=== PATIENT | female | born 1930 | race Caucasian/White ===

== ENCOUNTER → 2016-09-19 | Outpatient (CLI) | payer MEDICARE ==
[~2016-09-19] MED LIST: ASPI1TAB69 PO; ASPI325T; CALC1TAB87 PO; CIPR500T2 PO; LORT7.5T3 PO; METR-1 PO; MIAC200S; MULTTAB67 PO; TAB-TAB; TYLE3 PO; incentive spirometer
[2016-09-19 15:16] LABS: HEMATOCRIT 43.1 % (35.0-46.0); MEAN CELL VOLUME 91.1 FL (80.0-100.0); PLATELET COUNT 322 TH/MM3 (150-450); RED BLOOD COUNT 4.73 MIL/MM3 (4.00-5.30); REVIEW FLAG FINAL; WHITE BLOOD COUNT 8.3 TH/MM3 (4.0-11.0)
--- NOTE | 2016-09-21 17:27 | EKG ---
Date Performed: 09/19/2016 Time Performed: 15:11:39 PTAGE: 85 years EKG: SINUS TACHYCARDIA NONSPECIFIC T-WAVE ABNORMALITY ABNORMAL RHYTHM ECG Compared to prior stud y of 02/04/2007, non-specific ST-T changes are now present. NO PREVIOUS TRACING DOCTOR: Mo Panchal Interpretating Date/Time 09/21/2016 17:26:32
== END ==
LOC: CPRE 14:43
PROVIDERS: ATTEND Specialist
DX: Z01.810 Encounter for preprocedural cardiovascular examination (principal); Z01.812 Encounter for preprocedural laboratory examination; R94.31 Abnormal electrocardiogram [ECG] [EKG]
CPT/HCPCS: 36415; 85027; 93005

== ENCOUNTER → 2016-09-21 | Day surgery (SDC) | payer MEDICARE ==
--- NOTE | 2016-09-20 09:03 | MH ---
cc: OWEN ARIZMENDI DATE OF ADMISSION: 09/21/2016 HISTORY OF PRESENT ILLNESS An 85-year-old female with chronic sinusitis, nasal obstruction and nasopharyngeal lesion for nasopharyngeal biopsy, removal of lesion, open septal reconstruction and sphenoid sinusotomy. REVIEW OF SYSTEMS, FAMILY HISTORY, SOCIAL HISTORY Unremarkable. PHYSICAL EXAMINATION GENERAL: A well-appearing patient in no acute distress is noted. HEENT: Exam reveals a lesion in the nasopharynx more on the left than the right. LUNGS: Clear. HEART: Regular rate and rhythm. ABDOMEN: Soft and nontender. EXTREMITIES: Without cyanosis, clubbing or edema. NEUROLOGIC: Alert and oriented. Nonfocal neurologic exam. IMPRESSION/PLAN This is a patient with chronic sinusitis, nasal obstruction and lesion for surgical correction. She was instructed on the method of surgery and possible complications to include anesthetic complications, cardiac difficulty, pulmonary difficulty, stroke, or even , surgical complications of bleeding, infection, and recurrence. The patient appeared to agree, accept and understand the above-mentioned risks and benefits. In addition no guarantees or warranties regarding outcome were given. Will therefore proceed with surgery. MD YANG Flores/MELVIN /8:03 AM /8:51 AM
[~2016-09-21] VITALS: Ht 160 cm; Wt 55.2 kg
[~2016-09-21] MED LIST changes: +ACETAMINOPHEN/HYDROcodone 325 MG/5 MG TAB PO PRN; -ASPI325T; +CHLORHEXIDINE GLUCONATE 2 % 1 PACK (2 CLOTHS) TOPICAL PRN; -CIPR500T2 PO; +DO NOT ADM ANY ANTICOAGULANT DRUGS PRN; +EPINEPHRINE HCL 30 MG/30 ML TOPICAL ONE; +FAMOTIDINE 20 MG/2 ML VIAL ONE; +INSULIN HUMAN REGULAR 1,000 UNITS/10 ML VIAL SQ PRN; +LACTATED RINGER'S 1000 ML IV PRN; -LORT7.5T3 PO; +METOPROLOL TARTRATE 25 MG TAB PO PRN; -METR-1 PO; -MIAC200S; +MORPHINE SULFATE 4 MG/ML INJ IV PUSH PRN; +ONDANSETRON HCL 4 MG/2 ML VIAL IV PUSH ONE; +ONDANSETRON HCL 4 MG/2 ML VIAL IV PUSH PRN; +PHENYLEPH/NS 1000 MCG/10 ML SYR IV ONE; +POVIDONE IODINE 5% (ANTISEPSIS KIT) 4 APPLICATIONS EACH NARE PRN; +PROPOFOL 200 MG/20 ML AMP IV ONE; +SODIUM CHLORID 0.9% 500 ML IV PRN; -TAB-TAB; -TYLE3 PO; -incentive spirometer; +methylPREDNISolone SOD SUCC 125 MG/2 ML VIAL ONE
[2016-09-21 07:13] VITALS: BP 155/72; PULSE 101; RESP 18; TEMP 97.1; O2SAT 97
[2016-09-21 10:55] VITALS: BP 130/60; PULSE 89; RESP 18; TEMP 98.1; O2SAT 95
--- NOTE | 2016-09-23 18:39 | MP ---
cc: OWEN ARIZMENDI DATE OF SURGERY 09/21/16 PREOPERATIVE DIAGNOSIS Excision nasal lesion ANESTHESIA General ESTIMATED BLOOD LOSS Minimal. COMPLICATIONS None. SURGEON Dr. Emily Arizmendi PROCEDURE IN DETAIL Prepped and draped usual fashion. 1% Xylocaine 1:100,000 epinephrine was ejected into posterior nasal lesion on the left side. Under endoscopic visualization with the aid of a [employer] forceps, the lesion was removed in its entirety. It appeared to be attached to the nasal pharynx and the septum, no significant bleeding was noted. No residual lesion was noted. It was removed in its entirety. No other abnormalities were noted on exam. The patient tolerated procedure well. MD YANG Flores/ /9:14 AM /6:35 PM
== END | disposition home or self-care (01) ==
LOC: HSDC 06:29
PROVIDERS: ATTEND Specialist
DX: D10.6 Benign neoplasm of nasopharynx (principal); J44.9 Chronic obstructive pulmonary disease, unspecified
CPT/HCPCS: 00170; 42804; 88307; J2370; J2405; J2930; J3010; J7120; 88305

== ENCOUNTER → 2016-11-15 | Outpatient (CLI) | payer MEDICARE ==
[~2016-11-15] MED LIST changes: -ACETAMINOPHEN/HYDROcodone 325 MG/5 MG TAB PO PRN; -CHLORHEXIDINE GLUCONATE 2 % 1 PACK (2 CLOTHS) TOPICAL PRN; -DO NOT ADM ANY ANTICOAGULANT DRUGS PRN; -EPINEPHRINE HCL 30 MG/30 ML TOPICAL ONE; -FAMOTIDINE 20 MG/2 ML VIAL ONE; -INSULIN HUMAN REGULAR 1,000 UNITS/10 ML VIAL SQ PRN; -LACTATED RINGER'S 1000 ML IV PRN; -METOPROLOL TARTRATE 25 MG TAB PO PRN; -MORPHINE SULFATE 4 MG/ML INJ IV PUSH PRN; -ONDANSETRON HCL 4 MG/2 ML VIAL IV PUSH ONE; -ONDANSETRON HCL 4 MG/2 ML VIAL IV PUSH PRN; -PHENYLEPH/NS 1000 MCG/10 ML SYR IV ONE; -POVIDONE IODINE 5% (ANTISEPSIS KIT) 4 APPLICATIONS EACH NARE PRN; -PROPOFOL 200 MG/20 ML AMP IV ONE; -SODIUM CHLORID 0.9% 500 ML IV PRN; -methylPREDNISolone SOD SUCC 125 MG/2 ML VIAL ONE
== END ==
LOC: HRSP 11:58
DX: J44.9 Chronic obstructive pulmonary disease, unspecified (principal)
CPT/HCPCS: 94060; 94726; 94729

== ENCOUNTER → 2016-12-14 | Day surgery (SDC) | payer MEDICARE ==
--- NOTE | 2016-12-04 11:46 | MH ---
cc: NENO BERNSTEIN JEFFREY DATE OF ADMISSION: 12/19/2016 CHIEF COMPLAINT Left cavitary lung mass. HISTORY OF PRESENT ILLNESS This is an 86-year-old lady who has had a history of COPD, chronic bronchitis and wheezing, has had a CT chest done in September [address] of the chest demonstrated a cavitary, 3-cm lesion in the left lower lobe. The patient has cough but denies hemoptysis and she has been treated for recurrent bronchitis. She had a nasopharyngeal polyp resected and has had previous history for vocal cord polyp and has had hemoptysis occasionally. Denied that any fevers or chills or night sweats. She has had no reflux, nausea, vomiting or aspiration. The patient has chronic back pain from lumbar compression fractures and she has borderline diabetes. The patient has lost some weight recently and she does smoke half to one-pack per day and has done so for more than 50 years. PAST HISTORY 1. History of bronchiectasis and hemoptysis. 2. History of appendectomy. 3. History of vocal cord polyp. 4. History for allergic rhinitis. 5. Previous rib fractures. 6. Lumbar compression fracture. ALLERGIES No drug allergies. MEDICATIONS 1. Tylenol p.r.n. 2. Claritin as needed. 3. Aspirin one daily. HABITS The patient smoked one-pack per day for 70 years and has not quit as yet. Does not drink alcohol. FAMILY HISTORY Father of Alzheimer's disease. Mother had history of lung cancer with bony mets. SYSTEMS REVIEW The patient has had weight loss. She has postnasal drip, cough, wheezing, hoarseness. She has reflux and denies any nausea or GI bleed but she has had hemoptysis and she has joint pains of her extremities and back pain. She has no skin rash. No depression or anxiety. PHYSICAL EXAMINATION GENERAL: This is a thinly built elderly white female who is in no acute distress with mild pallor, no cyanosis or icterus. No lymphadenopathy or peripheral edema. VITAL SIGNS: Blood pressure 130/80, pulse is 105, respirations 22, temperature 98.2, weight is 120, saturation 94. HEENT: Head normocephalic. Pupils are reactive and equal. Tongue is moist. Throat is injected. Nasal mucosae edematous. NECK: Supple. No bruits or thyroid enlargement. CHEST: Distant breath sounds with wheezes throughout both lung stratton. Occasional crackles at the lung bases. HEART SOUNDS: Regular S1 and S2. No murmur. ABDOMEN: Soft and benign. No mass, no organomegaly or tenderness. Bowel sounds are active. EXTREMITIES: No edema. No calf tenderness. Reflexes are 1+ with no gross motor deficits. Cranial nerves are grossly intact. RECTAL EXAM: Deferred. SKIN: No lesions. IMPRESSION 1. Cavitary lesion left lower lobe. 2. COPD with emphysema. 3. Nicotine dependency. 4. Bronchiectasis. PLAN 1. The patient has been advised to use Bevespi Aerosphere 2 puffs b.i.d. 2. A pulmonary function study to be done this week. She was also advised to come in for a bronchoscopy early next week and this will be scheduled at [facility]. Thank you Dr. Easton for this consultation. Neno Bernstein MD JMATEUSZ/LUNA /12:20 AM /11:50 AM
[~2016-12-14] VITALS: Ht 160 cm; Wt 53.8 kg
[~2016-12-14] MED LIST changes: +*RESP: ALBUTEROL 2.5 MG/3 ML NEB (PRN) PERIprocedural Use ONLY NEB ONE; +ASPI-110 PO; -ASPI1TAB69 PO; +CHLORHEXIDINE GLUCONATE 2 % 1 PACK (2 CLOTHS) TOPICAL PRN; +DO NOT ADM ANY ANTICOAGULANT DRUGS PRN; +EPINEPHrine HCL (1:1000) 1 MG/ML VIAL ONE; +INSULIN HUMAN REGULAR 1,000 UNITS/10 ML VIAL SQ PRN; +LACTATED RINGER'S 1000 ML IV PRN; +LIDOCAINE HCL 2% 50 ML VIAL ONE; +METOPROLOL TARTRATE 25 MG TAB PO PRN; +ONDANSETRON HCL 4 MG/2 ML VIAL IV PUSH ONE; +PHENYLEPH/NS 1000 MCG/10 ML SYR IV ONE; +POVIDONE IODINE 5% (ANTISEPSIS KIT) 4 APPLICATIONS EACH NARE PRN; +PROPOFOL 200 MG/20 ML AMP IV ONE; +RESP: ALBUTEROL 2.5 MG/3 ML NEB (PRN) NEB; +SODIUM CHLORID 0.9% 500 ML IV PRN
[2016-12-14 09:30] VITALS: BP 157/85; PULSE 18; RESP 18; TEMP 98.4; O2SAT 95
[2016-12-14 10:21] LABS: AUTOMATED NEUTROPHIL # 7.1 TH/MM3 (1.8-7.7); BASOPHIL # 0.1 TH/MM3 (0-0.2); BASOPHIL % 0.7 % (0.0-2.0); EOSINOPHIL # 0.1 TH/MM3 (0-0.4); EOSINOPHIL % 1.3 % (0.0-4.0); HEMATOCRIT 43.9 % (35.0-46.0); HEMO FLAGS DIFF FINAL; LYMPH % 19.6 % (9.0-44.0); LYMPHOCYTE # 1.9 TH/MM3 (1.0-4.8); MEAN CELL VOLUME 90.1 FL (80.0-100.0); MEAN CORPUSCULAR HEMOGLOBIN 30.3 PG (27.0-34.0); MEAN CORPUSCULAR HGB CONC 33.6 % (32.0-36.0); MONO % 6.6 % (0.0-8.0); NEUT % 71.8 % (16.0-70.0); PLATELET COUNT 312 TH/MM3 (150-450); RED BLOOD COUNT 4.87 MIL/MM3 (4.00-5.30); RED CELL DISTRIBUTION WIDTH 13.7 % (11.6-17.2); WHITE BLOOD COUNT 9.9 TH/MM3 (4.0-11.0)
[2016-12-14 10:31] LABS: APTT (PATIENT) 28.4 SEC (24.3-30.1); PROTHROMBIN TIME - PATIENT 11.4 SEC (9.8-11.6)
[2016-12-14 10:50] LABS: BICARBONATE 23.6 MEQ/L (21.0-32.0); POTASSIUM 4.6 MEQ/L (3.5-5.1)
--- NOTE | 2016-12-14 12:50 | RADRPT ---
EXAM DATE/TIME: 12/14/2016 12:12 [place] COMPARISON: No previous studies available for comparison. INDICATIONS : Post bronchoscopy. MEDICAL HISTORY : Diverticulitis. Pulmonary fibrosis. SURGICAL HISTORY : Appendectomy. ENCOUNTER: Subsequent ACUITY: 1 day PAIN SCORE: Non-responsive. LOCATION: chest FINDINGS: Diffuse interstitial lung disease is noted. There is left hilar fullness. No consolidating infiltrate s are noted. There is no evidence of pleural effusion. There is no evidence of pneumothorax. CONCLUSION: Diffuse interstitial lung disease and left hilar fullness. No evidence of pneumothorax following bronchoscopy. Haris Adhikari MD on December 14, 2016 at 12:47 Board Certified Radiologist. This report was verified electronically.
[2016-12-14 13:35] VITALS: BP 120/69; PULSE 84; RESP 18; TEMP 98.1; O2SAT 95
--- NOTE | 2016-12-15 13:48 | MR ---
cc: SALVADOR MONTALVO JOHN DATE: 12/14/2016. PROCEDURE PERFORMED: Fiberoptic bronchoscopy with biopsy and brushings and washings. PREOPERATIVE DIAGNOSIS: Left lower lobe cavitary lesion. POSTOPERATIVE DIAGNOSIS: Left lower lobe cavitary lesion. ANESTHESIA: General with LMA. SURGEON: Abiodun Bernstein MD. DESCRIPTION OF THE PROCEDURE IN DETAIL AND FINDINGS: The patient was sedated with IV Diprivan following which the LMA was placed against the larynx. 2% Xylocaine was instilled onto the vocal cords for a total of 4 mL. The Olympus IT 180 bronchoscope was used to visualize the bronchi. The scope was advanced via the LMA into the larynx. The vocal cords moved equally. Following this, the trachea and lelia were visualized. The trachea and lelia were normal. The scope was then advanced into the right mainstem and right upper lobe segmental bronchi. These bronchi demonstrated thick mucoid secretions which were suctioned out. Saline washings were done. No endobronchial lesions were noted here. Next the right middle lobe bronchi were visualized which demonstrated no endobronchial lesions. Mucoid secretions were noted which were suctioned. Next the right lower lobe segmental bronchi were visualized which demonstrated mild endobronchitis with mucosal edema and mucoid secretions. These were suctioned out. No endobronchial masses were seen. The scope was then advanced into the left mainstem and left upper lobe segmental bronchi. The left upper lobe segmental bronchi demonstrated moderate endobronchitis with mucosal edema and mucoid secretions. These were suctioned out. Next the left lower lobe segmental bronchi were visualized. The left lower lobe bronchus was narrowed with an irregular mucosal lesion and there was cobblestoning of the mucosa and the lumen was narrowed by over 50%. The mucosa was friable. Brushings were done for cytology and micro. Biopsies were done from this area and the bleeding was controlled with epinephrine solution and saline washings. The procedure was then terminated. The patient tolerated the procedure well. MD ИВАН Pham/CARLOS /11:53 AM /1:45 PM
== END | disposition home or self-care (01) ==
LOC: HSDC 08:56
DX: R91.8 Other nonspecific abnormal finding of lung field (principal); J84.10 Pulmonary fibrosis, unspecified; J44.9 Chronic obstructive pulmonary disease, unspecified; J30.9 Allergic rhinitis, unspecified; K21.9 Gastro-esophageal reflux disease without esophagitis; R09.82 Postnasal drip; R63.4 Abnormal weight loss; F17.200 Nicotine dependence, unspecified, uncomplicated
CPT/HCPCS: 00520; 31622; 31623; 71010; 80048; 85025; 85610; 85730; 87015; 87070; 87077; 87102; 87116; 87205; 87206; 88112; 88305; 88312; 94664; J0171; J2370; J2405; J7120; J7613